=== PATIENT | male | born 1965 | race African-American/Black ===

== ENCOUNTER 2022-01-02 09:42 | Emergency (ER) | payer SELFPAY ==
[~2022-01-02] VITALS: Ht 182.9 cm; Wt 123.3 kg
[2022-01-02 09:49] VITALS: BP 123/65
[2022-01-02] MEDS ORDERED: KETOROLAC 60 MG/2 ML VIAL. IM ONE (10:30)
--- NOTE | 2022-01-02 10:56 | RAD ---
EXAMINATION: XR ELBOW COMPLETE_LEFT 3+VIEWS. HISTORY: 56 years Male Reason: Elbow pain after fall / COMPARISON: None. FINDINGS: There is elevation of the anterior and posterior fat pads compatible with an effusion. There is a a c alcification oval-shaped measuring 1 cm projecting over the jointline at the mid aspect. This could b e sequela of old injury or loose body. Marginal osteophytes at the jointline seen. There is no defini te acute fracture. No subluxation or dislocation. No radiopaque foreign body. IMPRESSION: There is a joint effusion with no definite acute fracture seen. There are degenerative changes and a calcification projecting at the mid the aspect of the joint could be sequela of old injury or loose b garrett. Electronically signed by: aRz Gonzalez MD (01/02/2022 10:53 AM) [id number]
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
== END 2022-01-02 12:10 | disposition home or self-care (01) ==
LOC: ER 09:42
DX: M25.522 Pain in left elbow (principal); F17.210 Nicotine dependence, cigarettes, uncomplicated; G89.11 Acute pain due to trauma; W01.0XXA Fall on same level from slipping, tripping and stumbling without subsequent striking against object, initial encounter; Y93.89 Activity, other specified; Y92.89 Other specified places as the place of occurrence of the external cause; Y99.8 Other external cause status
CPT/HCPCS: 73080; 96372; 99283; J1885